=== PATIENT | male | born 1985 | race Caucasian/White ===

== ENCOUNTER 2022-11-23 19:43 | Emergency (ER) | payer SELFPAY ==
[2022-11-23 19:52] VITALS: BP 124/82; PULSE 64; RESP 18; TEMP 97.9; BMI 23.5
[2022-11-23] MEDS ORDERED: ACETAMINOPHEN 500 MG TABLET (FP) PO ONE (20:27)
[2022-11-23] MEDS ORDERED: ACETAMINOPHEN 500 MG TABLET (FP) ONE (20:29)
== END 2022-11-24 01:20 | disposition home or self-care (01) ==
LOC: JER 19:43
DX: S09.90XA Unspecified injury of head, initial encounter (principal); R51.9 Headache, unspecified; R42 Dizziness and giddiness; R11.0 Nausea; M54.2 Cervicalgia; Y04.8XXA Assault by other bodily force, initial encounter; Y93.9 Activity, unspecified; Y92.830 Public park as the place of occurrence of the external cause
CPT/HCPCS: 70450-TC; 70486-TC; 72125-TC; 99284-25